=== PATIENT | female | born 1980 | race Caucasian/White ===

== ENCOUNTER 2019-03-06 03:22 | Emergency (ER) | payer MEDICARE ==
[~2019-03-06] VITALS: Ht 165.1 cm; Wt 53.1 kg
--- NOTE | 2019-03-06 03:32 | NUR ---
Patient requesting Rx for albuterol inhale. Patient states she was at [facility] and was Dx with URI. States inhaler not effective but denies SOB. Patient states she has had 5 weeks of dry cough.
--- NOTE | 2019-03-06 03:59 | NUR ---
Patient discharged to home in stable conditon. Written and verbal after care instructions given. Patient verbalizes understanding of instructions. Patient alert and oriented x4. Patient ambulatory with steady gait. Exit care package and personal belongings taken home with the patient at discharge. Meal and clothing offered to patient and patient refused.
[2019-03-06 04:01] VITALS: BP 110/71
== END 2019-03-06 04:01 | disposition home or self-care (01) ==
LOC: ER 03:27
DX: R05 Cough (principal); G43.909 Migraine, unspecified, not intractable, without status migrainosus; F41.9 Anxiety disorder, unspecified; F31.9 Bipolar disorder, unspecified; F20.9 Schizophrenia, unspecified; F17.200 Nicotine dependence, unspecified, uncomplicated; Z59.0 Homelessness; Z88.8 Allergy status to other drugs, medicaments and biological substances
CPT/HCPCS: A4663